=== PATIENT | male | born 1955 | race Caucasian/White ===

== ENCOUNTER → 2024-04-12 | Emergency (ER) | payer MEDICARE, BC ==
[~2024-04-12] VITALS: Ht 195.6 cm; Wt 77.1 kg
[2024-04-12] MEDS: IV NS 0.9% 1,000 ML BAG IV ONE (10:12)
[2024-04-12 10:34] LABS: BASOPHILS % (AUTO) 0.4 % (0.0-2.0); EOSINOPHILS # (AUTO) 0.1 K/uL (0.0-0.7); EOSINOPHILS % (AUTO) 1.4 % (0.0-6.0); HEMATOCRIT 38 % (39-51); HEMOGLOBIN 12.6 g/dL (13.5-17.5); LYMPHOCYTES # (AUTO) 1.4 K/uL (0.8-4.8); MEAN CORPUSCULAR HEMOGLOBIN 34 PG (26.0-33.0); MEAN CORPUSCULAR HGB CONC 33 g/dl (31.0-36.0); MEAN CORPUSCULAR VOLUME 104 fL (80-96); MONOCYTES # (AUTO) 0.4 K/uL (0.1-1.30); MONOCYTES % (AUTO) 8.6 % (2.0-12.0); NEUTROPHILS # (AUTO) 2.7 K/uL (1.8-8.9); NEUTROPHILS % (AUTO) 59.6 % (43.0-81.0); PLATELET COUNT (AUTO) 176 K/uL (150-450); RED BLOOD CELL COUNT(AUTO) 3.66 MIL/uL (4.5-6.0); RED CELL DISTRIBUTION WIDTH 13.4 % (11.5-15.0); WHITE BLOOD COUNT (AUTO) 4.5 K/uL (4.3-11.0)
[2024-04-12 10:45] LABS: INR 1.18 (0.91-1.10); PARTIAL THROMBOPLASTIN TIME 21.6 SEC (24.3-34.3); PROTHROMBIN TIME 12.4 SECS (9.2-11.1)
[2024-04-12 10:48] LABS: CALCIUM, SERUM 8.4 mg/dL (8.5-10.1); CARBON DIOXIDE 32 mmol/L (21-32); CHLORIDE 105 mmol/L (98-107); CREATININE 1.1 mg/dL (0.6-1.3); GLUCOSE 111 mg/dL (74-106); POTASSIUM 4.6 mmol/L (3.5-5.1); SODIUM SERUM 141 mmol/L (136-145); UREA NITROGEN, BLOOD 30 mg/dL (7-18)
[2024-04-12 11:03] LABS: APPEARANCE,URINE CLEAR (CLEAR); BILIRUBIN,URINE NEGATIVE (NEGATIVE); BLOOD, URINE NEGATIVE Ery/uL (NEGATIVE); COLOR,URINE YELLOW (YELLOW); KETONES,URINE NEGATIVE (NEGATIVE); LEUKOCYTE ESTERASE ,URINE NEGATIVE (NEGATIVE); NITRITE, URINE NEGATIVE (NEGATIVE); PH,URINE 6.5 (5.0-8.0); PROTEIN,URINE NEGATIVE (NEGATIVE); UGLUCOSE NEGATIVE (NEGATIVE)
[2024-04-12 11:03] LABS: ALANINE AMINOTRANSFERASE 31 U/L (12-78); ALBUMIN 3.5 g/dL (3.4-5.0); ALKALINE PHOSPHATASE 61 U/L (46-116); ASPARTATE AMINOTRANSFERASE 19 U/L (15-37); BILIRUBIN,DIRECT 0.2 mg/dL (0.0-0.2); BILIRUBIN,TOTAL 0.7 mg/dL (0.2-1.0); TOTAL PROTEIN, SERUM 6.6 g/dL (6.4-8.2)
[2024-04-12 11:06] LABS: ADD URINE CULTURE NO; BACTERIA,URINE None seen /HPF (None Seen); RBC,URINE 0-2 /HPF (0-2); WBC,URINE 0-2 /HPF (0-3)
[2024-04-12 11:07] LABS: FINE GRANULAR CASTS,URINE Few /LPF (None Seen); HYALINE CASTS, URINE Few /LPF (None Seen); SQUAMOUS EPITHELIAL CELL,UR None Seen /HPF (None Seen); TRICHOMONAS,URINE None Seen /HPF (None Seen); YEAST,URINE None Seen /HPF (None Seen)
[2024-04-12 11:08] LABS: MUCUS,URINE Many /LPF (None Seen)
[2024-04-12 11:10] LABS: ANISOCYTOSIS 1+; PLATELET ESTIMATE ADEQUATE
[2024-04-12 11:18] VITALS: TEMP 97.9
[2024-04-12 11:41] VITALS: BP 107/62; O2SAT 100
== END | disposition home or self-care (01) ==
LOC: ER 09:58
DX: I95.1 Orthostatic hypotension (principal); N40.0 Benign prostatic hyperplasia without lower urinary tract symptoms
CPT/HCPCS: 99285; 96360; 71045; 93005; 85025; 80048; 80076; 81001; 36415; 84484; 85730; 82962; J7030; A4223